=== PATIENT | female | born 1970 | race Caucasian/White ===

== ENCOUNTER 2017-08-20 16:50 | Emergency (ER) | payer BC ==
[2017-08-20] MEDS: IBUPROFEN 600 MG TAB PO (18:52)
== END 2017-08-20 21:44 | disposition home or self-care (01) ==
LOC: FTE 16:50
DX: S20.219A Contusion of unspecified front wall of thorax, initial encounter (principal); S16.1XXA Strain of muscle, fascia and tendon at neck level, initial encounter; S29.012A Strain of muscle and tendon of back wall of thorax, initial encounter; V49.40XA Driver injured in collision with unspecified motor vehicles in traffic accident, initial encounter
CPT/HCPCS: 71045; 99283-25